=== PATIENT | male | born 1940 | race Caucasian/White ===

== ENCOUNTER 2018-12-23 13:06 | Outpatient (CLI) | payer MEDICARE ==
[2018-12-23] MEDS ORDERED: CHOL40002 PO (13:42)
[2018-12-23] MEDS ORDERED: LEVO100T5 PO (13:42)
[2018-12-23 14:20] LABS: INTERNATIONAL NORMALIZED RATIO 1.03 (0.93-1.1); PROTHROMBIN TIME 10.8 Seconds (9.6-11.5)
[2018-12-23 14:55] LABS: HEMOGLOBIN A1C 6.1 % (4.2-6.3)
== END 2018-12-23 23:59 | disposition home or self-care (01) ==
LOC: STAR 13:06
PROVIDERS: ATTEND Orthopaedic Surgery
DX: Z01.818 Encounter for other preprocedural examination (principal); M16.12 Unilateral primary osteoarthritis, left hip; Z96.642 Presence of left artificial hip joint; R73.09 Other abnormal glucose
CPT/HCPCS: 36415; 83036; 85610; 85730